=== PATIENT | male | born 1950 | race Caucasian/White ===

== ENCOUNTER 2021-12-09 01:46 | Emergency (ER) | payer OTHER ==
[~2021-12-09] VITALS: Ht 167.6 cm; Wt 100.0 kg
[2021-12-09 07:00] VITALS: BP 120/83
== END 2021-12-09 08:03 | disposition home or self-care (01) ==
LOC: EDBD 01:46 → ER 01:52
DX: N20.9 Urinary calculus, unspecified (principal); K80.20 Calculus of gallbladder without cholecystitis without obstruction
CPT/HCPCS: 74176